=== PATIENT | female | born 1980 | race Caucasian/White ===

== ENCOUNTER 2019-07-14 08:56 | Observation (INO) | payer OTHER, SELFPAY ==
[2019-07-14 09:30] VITALS: BP 103/70; PULSE 99
[2019-07-14 09:35] VITALS: RESP 16; TEMP 36.4; BMI 29.2
--- NOTE | 2019-07-14 09:35 | OBADM ---
This patient, Amy Cedillo, admitted to the OB room 116 at 0856 for observation for left sided pain. Patient/family oriented to hospital policies and general routines including ID bracelet, bed and alarms, visiting hours, pain management, procedures, bathroom and other care routines, personal items, smoking policy, room service/diet, and visiting hours. Patient/Family are encouraged to report perceived risks to care and to ask questions if they do not understand what they are told or what they should do.
[2019-07-14 09:45] VITALS: BP 99/65; PULSE 105
[2019-07-14 10:00] VITALS: BP 106/70; PULSE 108
[2019-07-14 10:01] LABS: Add Urine Microscopic? YES; Appearance Urine Clear (Clear); Bacteria Urine Trace /hpf; Bilirubin Urine Negative (Negative); Blood Urine Negative (Negative); Color Urine Yellow (Yellow); Glucose Urine UA Negative (Negative); Ketones Urine Trace mg/dL (Negative); Leukocyte Esterase Ur Negative LEU/UL (Negative); Mucus Urine Rare /lpf; Nitrate Urine Negative (Negative); Protein Urine Negative (Negative); RBC Urine 0-2 /hpf (0-2); Specific Grav Ur 1.016 (1.001-1.035); Squamous Epithelial Cell Urine Occasional /hpf (Few); Urobilinogen Urine Negative mg/dL (<2.0); WBC Urine 0-3 /hpf
--- NOTE | 2019-07-14 10:01 | PM.OBTRLD ---
OB - Triage/Final Diagnosis Visit Information Date of evaluation: 07/14/19 Reason for evaluation: threatened labor Evaluation Vital signs: Vital Signs - 24 hr 07/14/19 09:30 07/14/19 09:35 07/14/19 09:45 Temperature 97.5 F L Pulse Rate 99 105 H Respiratory Rate 16 Blood Pressure 103/70 99/65 L 07/14/19 10:00 Temperature Pulse Rate 108 H Respiratory Rate Blood Pressure 106/70
[2019-07-14 10:15] VITALS: BP 107/72; PULSE 89
[2019-07-14 11:00] VITALS: BP 87/62; PULSE 89
== END 2019-07-14 11:28 | disposition home or self-care (01) ==
PROVIDERS: Admitting Provider Obstetrics & Gynecology; Visit Provider Obstetrics & Gynecology
DX: O47.1 False labor at or after 37 completed weeks of gestation (principal); Z3A.37 37 weeks gestation of pregnancy
CPT/HCPCS: 81001; G0378; G0379

== ENCOUNTER 2019-07-25 14:01 | Outpatient (CLI) | payer OTHER, SELFPAY ==
[2019-07-25 16:29] LABS: Hematocrit 37.4 % (37.0-47.0); Hemoglobin 12.8 g/dL (12.0-15.0); Mean Corpuscular HGB Conc 34.2 g/dl (32-36); Mean Corpuscular Hemoglobin 32.8 pg (26-34); Mean Corpuscular Volume 95.9 fl (80-100); Mean Platelet Volume 11.7 fl (7.4-10.4); Platelet Count Result 136 k/mm3 (150-375); Red Cell Distribution Width 14.6 % (11.5-14.5); White Blood Count 6.8 K/mm3 (4.5-10.0)
[2019-07-26 09:25] LABS: Rapid Plasma Reagin Non-Reactive (NonReactive)
== END 2019-07-25 14:02 | disposition home or self-care (01) ==
PROVIDERS: Visit Provider Obstetrics & Gynecology
DX: Z34.93 Encounter for supervision of normal pregnancy, unspecified, third trimester (principal); Z3A.00 Weeks of gestation of pregnancy not specified
CPT/HCPCS: 36415; 85027; 86592; 86850; 86900; 86901

== ENCOUNTER 2019-07-26 05:30 | Inpatient (IN) | payer OTHER, SELFPAY ==
[2019-07-26] VITALS (64 sets, daily range): BP systolic 94–131; BP diastolic 59–87; PULSE 50–188; RESP 15–19; TEMP 36.3–37.7; O2SAT 96–100; BMI 30.9
[2019-07-26] MEDS: LACTATED RINGERS 1,000 ML 125 ML IV CONT (06:09)
--- NOTE | 2019-07-26 06:44 | WPDANESEPPF ---
Anes - Initial Pre Proc Eval Procedure: Operation Date: 07/26/19 07:30 Proposed Procedures p Repeat Section, Tubal Ligation With Rings - Mejia Edmond MD Date/Time: 07/26/19 06:44 Surgeon: Mejia Edmond MD Pre Op Diagnosis: SECTION Patient Data Age: 38 Gender: F Height: Weight: Last Vital Signs Pulse 86 07/26/19 06:10 BP 113/78 07/26/19 06:10 Allergies Allergy/AdvReac Type Severity Reaction Status Date / Time Penicillins AdvReac Unknown Vomiting Verified 08/11/16 07:51 Home Medications Medication Instructions Recorded Confirmed Type PNV cmb#95-ferrous fumarate-FA 1 tablet PO DAILY 07/04/19 07/14/19 History [] cholecalciferol (vitamin D3) 125 mcg PO DAILY 07/04/19 07/14/19 History [Vitamin D3] valacyclovir [Valtrex] 500 mg PO DAILY 07/04/19 07/14/19 History Patient hx anesthesia problems: none Family hx anesthesia problems: none PMFSH Family History Family History Father Skin cancer Father Liver cancer Social History Social History Substance use: never Gender identity (if verbalized by the patient): Female Spiritual care concerns: No Anes - Eval Final PreProcedure Day of Procedure 07/26/19 06:44 Patient weight: overweight Heart: regular rate and rhythm Lungs: clear to auscultation Airway: Mallampati scale class II Neurological: alert and oriented Last oral intake: >/= 8 hours ASA classification: II Emergent: no Anesthetic plan: proceed Anesthesia type and monitoring: regional spinal and standard monitoring Informed Consent: The patient's anesthetic plan and its attendant risks and benefits were discussed with the patient/family/POA. Questions were solicited and answers provided to the satisfaction of the patient/family/POA.
[2019-07-26] MEDS: LACTATED RINGERS 1,000 ML 999 ML IV CONT (06:46)
--- NOTE | 2019-07-26 07:25 | LDADM ---
This patient, Amy Cedillo, was admitted to Labor/Delivery/Recovery 120 on 07/26/19 at 05:30. Plans for section, pain management and were discussed with patient. Patient/family oriented to hospital policies and general routines including ID bracelet, bed and alarms, visiting hours, pain management, procedures, bathroom and other care routines, personal items, smoking policy, room service/diet and guest tray routines, security routines, and visiting hours. Patient/Family are encouraged to report perceived risks to care and to ask questions if they do not understand what they are told or what they should do. See OBIX for further documentation.
[2019-07-26] MEDS: ceFAZolin 2 GM/D5W 50 ML 2 GM/50 ML BAG IVPB (07:35)
--- NOTE | 2019-07-26 07:40 | PM.IMHP ---
H&P: HPI History of Present Illness Chief complaint: SECTION Narrative: Amy Cedillo is a 38 year old female Multiple who was admitted for repeat section tubal ligation. She understands this to be a permanent and irreversible procedure risks and benefits reviewed. Review of Systems Review of Systems: All systems reviewed & are unremarkable except as noted in HPI and below PMFSH Family History Family History Father Skin cancer Father Liver cancer Social History Social History Smoking status: Never smoker Substance use: never Gender identity (if verbalized by the patient): Female Spiritual care concerns: No Meds Home Medications and Allergies Home Medications Medication Instructions Recorded Confirmed Type PNV cmb#95-ferrous fumarate-FA 1 tablet PO DAILY 07/04/19 07/14/19 History [] cholecalciferol (vitamin D3) 125 mcg PO DAILY 07/04/19 07/14/19 History [Vitamin D3] valacyclovir [Valtrex] 500 mg PO DAILY 07/04/19 07/14/19 History Allergies Allergy/AdvReac Type Severity Reaction Status Date / Time Penicillins AdvReac Unknown Vomiting Verified 08/11/16 07:51 Vital Signs Vital Signs - 24 hr 07/26/19 06:10 Pulse Rate 86 Blood Pressure 113/78 Exam Const: General: no acute distress Eyes: General: appearance normal, both eyes and all related structures Neck: Neck: supple and no JVD Thyroid: thyroid normal Resp: Effort & Inspection: normal respiratory effort Auscultation: clear to auscultation bilaterally Cardio: Rate: regular rate Rhythm: regular rhythm GI: Inspection: non-distended GI Palp: Yes Soft to palpation, No Tenderness to palpation present (GI) and No Guarding due to palpation present (GI) Auscultation: normal bowel sounds : General: Yes bladder normal to palpation External Female Exam: normal external appearance Speculum Exam - Vagina: normal vaginal discharge and No vaginal bleeding Speculum Exam - Cervix: nontender Bimanual exam- vagina & uterus: bladder normal to palpation and No Cervical tenderness present OB/external & speculum: No vaginal bleeding Skin: General skin exam: no rashes or lesions noted Extrem: General: normal to inspection and no edema Psych: Mental Status: mental status grossly normal Affect: normal affect Assessment and Plan Additional Plan Impression: Term with previous section who desires permanent sterilization Plan: Repeat section and tubal ligation
[2019-07-26] MEDS: KETOROLAC 30 MG/ML VIAL (*BKC) (08:10)
--- NOTE | 2019-07-26 08:18 | PM.PROC ---
Procedure Note - Detailed Date of procedure: 07/26/19 Pre-op diagnosis: SECTION Surgeon: Mejia Edmond MD Postop diagnosis: S previous section desires permanent sterilization term Procedure: Repeat low-transverse section and bilateral tubal ligation via modified Familia method EBL: 480cc Findings: Female infant 8 lb 0 oz Apgars 8 and 9 at 1 and 5 minutes respectively. A small uterine fibroid at the fundus measuring about a cm in size normal-appearing ovaries and tubes. Anesthesia: Spinal Procedure: The patient was prepped and draped in the normal sterile fashion placed in the supine position. Under excellent spinal anesthetic the abdomen was entered in a Pfannenstiel fashion progressive layers to the fascia. Fascia was incised midline carried upward outward fashion bilaterally. The underlying muscles were sharply dissected prior perineum a by Marcela clamps. The peritoneum was entered by sharp dissection superiorly and carried inferiorly to the dome of the bladder. Bladder blade was placed a bladder flap was formed. A bladder flap the bladder blade returned. A low-transverse incision made in the head delivered in the RYAN position. Anterior posterior shoulder delivered spontaneously. Cord clamped x2 and cut and infant passed off the table given Apgars of 8 [id number] 9 [id number]. Cord blood was drawn. Placenta delivered intact manually and uterus delivered in the abdomen and wrapped in a moist towel. The fascia was then closed with continuous running 0 Vicryl from lateral edge to lateral edge followed by 2nd imbricating 0 Vicryl from lateral edge to lateral edge. Hemostasis was assured the left fallopian tube was grasped a good knuckle of tube was free tied with 0 chromic. The portion between the and the distal and proximal legs were free tied with 0 chromic in the portion between cut and passed off the table and marked as portion of left fallopian tube. In like fashion the right fallopian tube was grasped a good knuckle of tube was free tied with 0 chromic the peritoneum pierced and the distal and proximal legs were free tied with 0 chromic. The portion between cut and passed off as portion of right fallopian tube. Hemostasis was assured. The uterine incision inspected 1 last time noted be hemostatic. The uterus returned to the abdomen. Laps removed and accounted for. The fascia was closed with continuous running 0 Vicryl from lateral edge to midline bilaterally. Irrigation subcutaneous layer was undertaken and the skin closed with 4 O Monocryl and glue. Blood loss was estimated [id number]. All sponge, needle, instrument counts were correct. There were no immediate complications
[2019-07-26] MEDS: ONDANSETRON INJ 4 MG/2 ML VIAL IV PUSH (09:16)
[2019-07-26] MEDS: SIMETHICONE 80 MG TAB.CHEW PO ×2 (11:21→18:08)
[2019-07-26] MEDS: KETOROLAC 30 MG/ML VIAL (*BKC) IV PUSH (13:12)
--- NOTE | 2019-07-26 13:20 | PC.NURSE ---
Consult with pt., mother states she wishes to pump and bottle feed. is currently in Level II status. Breast pump provided due to her wishes. Instructions given on breast pump care and usage, pumping schedule, nipple care, and collection and storage of breast milk. Encouraged [id number] when infant is able, breast massage and manual expression to stimulate supply. Pumping log provided and reviewed. Assessed patient for correct flange size, placement and draw. Patient verbalizes and demonstrates understanding of instructions.
[2019-07-26] MEDS: DOCUSATE SODIUM 100 MG CAPSULE PO (18:10)
[2019-07-27 04:47] VITALS: BP 118/67; PULSE 71; RESP 18; TEMP 36.9
[2019-07-27] MEDS: IBUPROFEN 600 MG TABLET PO ×3 (05:06→19:18)
[2019-07-27 06:11] LABS: Basophils Absolute Auto 0.1 K/mm3 (0.0-0.1); Basophils Percent Auto 0.7 % (0.2-1.2); Eosinophils Absolute Auto 0.1 K/mm3 (0-0.3); Eosinophils Percent Auto 0.8 % (0-4.4); Hematocrit 35.2 % (37.0-47.0); Hemoglobin 11.9 g/dL (12.0-15.0); Immature Granulocyte Absolute 0.06 K/mm3 (0.00-0.031); Immature Granulocyte Percent A 0.6 % (0-0.5); Lymphocytes Absolute Auto 1.28 K/mm3 (0.9-3.2); Lymphocytes Percent Auto 12.5 % (18.3-44.2); Mean Corpuscular HGB Conc 33.8 g/dl (32-36); Mean Corpuscular Hemoglobin 32.9 pg (26-34); Mean Corpuscular Volume 97.2 fl (80-100); Mean Platelet Volume 11.5 fl (7.4-10.4); Monocytes Absolute Auto 0.7 K/mm3 (0.1-0.6); Monocytes Percent Auto 6.4 % (2.6-8.5); Neutrophils Absolute Auto 8.1 K/mm3 (1.3-6.7); Platelet Count Result 103 k/mm3 (150-375); Red Blood Count 3.62 M/mm3 (4.2-5.4); Red Cell Distribution Width 14.6 % (11.5-14.5); White Blood Count 10.3 K/mm3 (4.5-10.0)
--- NOTE | 2019-07-27 06:42 | PM.OBPNVD ---
OB - PN: Subj Subjective Date/time seen: 07/27/19 06:42 Patient comments: no complaints and pain well controlled baby status: doing well and nursing well OB - PN: Obj Data Labs CBC & Chem 7: 07/27/19 05:06 Labs: Laboratory Results - last 24 hr 07/27/19 05:06 WBC 10.3 H RBC 3.62 L Hgb 11.9 L Hct 35.2 L MCV 97.2 MCH 32.9 MCHC 33.8 RDW 14.6 H Plt Count 103 L MPV 11.5 H Immature Gran % (Auto) 0.6 H Neut % (Auto) 79.0 H Lymph % (Auto) 12.5 L [place] % (Auto) 6.4 Eos % (Auto) 0.8 Baso % (Auto) 0.7 Lymph # (Auto) 1.28 [place] # (Auto) 0.7 H Eos # (Auto) 0.1 Baso # (Auto) 0.1 Abs Immat Gran (auto) 0.06 H Absolute Neuts (auto) 8.1 H Absolute Nucleated RBC 0.0 Nucleated RBC % 0.0 OB - PN A/P Plan day: 1 Plan: routine care Time Spent With Patient Time: Total time spent is greater than 50% in coordination of care (as documented) at patient's floor/unit and/or counseling patient: Time with patient: less than 15 minutes Review of Systems Review of Systems: All systems reviewed & are unremarkable except as noted in HPI and below Exam Const: General: no acute distress Eyes: General: appearance normal, both eyes and all related structures Neck: Neck: supple and no JVD Thyroid: thyroid normal Resp: Effort & Inspection: normal respiratory effort Auscultation: clear to auscultation bilaterally Cardio: Rate: regular rate Rhythm: regular rhythm GI: Inspection: normal to inspection and incision (cdi) Percussion: Yes normal to percussion Auscultation: normal bowel sounds : General: Yes bladder normal to palpation External Female Exam: normal external appearance Speculum Exam - Vagina: normal vaginal discharge and No vaginal bleeding Speculum Exam - Cervix: nontender Bimanual exam- vagina & uterus: bladder normal to palpation and No Cervical tenderness present OB/external & speculum: No vaginal bleeding Skin: General skin exam: no rashes or lesions noted Extrem: General: normal to inspection and no edema Psych: Mental Status: mental status grossly normal Affect: normal affect
[2019-07-27 07:45] VITALS: BP 104/55; PULSE 62; RESP 16; TEMP 37.6; O2SAT 95
[2019-07-27] MEDS: MULTIVIT/MIN/PREN/FOL AC/IRON TABLET 1 TAB PO (08:06)
[2019-07-27] MEDS: DOCUSATE SODIUM 100 MG CAPSULE PO ×2 (08:07→19:17)
--- NOTE | 2019-07-27 10:15 | PC.NURSE ---
Mother states she continues to pump without difficulties or discomfort. Mother states she thought she may have more supply by today. Reviewed transition of milk and may take a few days.
--- NOTE | 2019-07-27 18:02 | WPDANLDPN2 ---
Anes-Prog Note L&D Date/Time: 07/27/19 18:02 Comfortable throughout: section Neuraxial method: spinal Epidural/Spinal procedure site: clean & non-tender Neuro status: Neuro function grossly intact. Cardiovascular status: normal Respiratory status: normal Airway patency: baseline Mental status: baseline Post-Op hydration status: normal Vital Signs: Last Vital Signs Temp 37.6 C H 07/27/19 07:45 Pulse 62 07/27/19 07:45 Resp 16 07/27/19 07:45 BP 104/55 L 07/27/19 07:45 Pulse Ox 95 07/27/19 07:45 I/O: Intake & Output 07/27/19 07/27/19 07/27/19 07:59 15:59 23:59 Intake Total 500 Output Total 2050 300 Balance -1550 -300 Post-procedural complaints: none Patient feedback: Patient satisfied with anesthetic care.
--- NOTE | 2019-07-27 18:03 | WPDANLDNPN2 ---
Anes-Prog Note L&D-Neuraxial Date/Time: 07/27/19 18:03 Neuraxial medications: intrathecal PF morphine Opiod-related complaints: none Patient feedback: Patient satisfied with post-operative pain management.
[2019-07-27 19:25] VITALS: BP 122/76; PULSE 80; RESP 13; TEMP 37; O2SAT 98
[2019-07-28] MEDS: IBUPROFEN 600 MG TABLET PO ×4 (02:10→20:39)
[2019-07-28] MEDS: SIMETHICONE 80 MG TAB.CHEW PO (02:11)
--- NOTE | 2019-07-28 07:04 | P.PNOB_ITS ---
OB - PN: Subj Subjective Date/time seen: 07/28/19 07:04 Patient comments: no complaints and pain well controlled baby status: doing well and nursing well OB - PN: Obj Data Labs CBC & Chem 7: 07/27/19 05:06 OB - PN A/P Plan day: 2 Plan: routine care Time Spent With Patient Time: Total time spent is greater than 50% in coordination of care (as fang pedroza) at patient's floor/unit and/or counseling patient: Time with patient: less than 15 minutes Review of Systems Review of Systems: All systems reviewed & are unremarkable except as noted in HPI and below Exam Const: General: no acute distress Eyes: General: appearance normal, both eyes and all related structures Neck: Neck: supple and no JVD Thyroid: thyroid normal Resp: Effort & Inspection: normal respiratory effort Auscultation: clear to auscultation bilaterally Cardio: Rate: regular rate Rhythm: regular rhythm GI: Inspection: normal to inspection and incision (cdi) Percussion: Yes normal to percussion Auscultation: normoactive bowel sounds : General: Yes bladder normal to palpation External Female Exam: normal external appearance Speculum Exam - Vagina: normal vaginal discharge and No vaginal bleeding Speculum Exam - Cervix: nontender Bimanual exam- vagina & uterus: bladder normal to palpation and No Cervical tenderness present OB/external & speculum: No vaginal bleeding Skin: General skin exam: no rashes or lesions noted Extrem: General: normal to inspection and no edema Psych: Mental Status: mental status grossly normal Affect: normal affect
[2019-07-28] MEDS: DOCUSATE SODIUM 100 MG CAPSULE PO ×2 (07:53→17:45)
[2019-07-28] MEDS: MULTIVIT/MIN/PREN/FOL AC/IRON TABLET 1 TAB PO (07:53)
[2019-07-28 08:35] VITALS: BP 121/73; PULSE 63; RESP 18; TEMP 36.3
[2019-07-28 20:15] VITALS: BP 116/69; PULSE 58; RESP 16; TEMP 36.4; O2SAT 99
[2019-07-29] MEDS: IBUPROFEN 600 MG TABLET PO ×2 (04:24→11:09)
[2019-07-29] MEDS: MULTIVIT/MIN/PREN/FOL AC/IRON TABLET 1 TAB PO (07:27)
[2019-07-29] MEDS: DOCUSATE SODIUM 100 MG CAPSULE PO (07:27)
[2019-07-29 07:35] VITALS: BP 135/74; PULSE 87; RESP 18; O2SAT 99
--- NOTE | 2019-07-29 08:30 | PC.NURSE ---
Mother continues to pump without difficulties or discomfort. Mother's milk is transitioning in today. Reviewed offering EBM then formula until she has enough breastmilk to switch to entire feeding of EBM. Reviewed instructions given on breast pump care and usage, pumping schedule, nipple care, and collection and storage of breast milk. Encouraged [id number], breast massage and manual expression to stimulate supply. Reviewed correct flange size, placement and draw. Patient verbalizes and demonstrates understanding of instructions. Mother is feeding as required and waking infant to feed if needed. Infant is currently meeting outcomes for weight, output, jaundice and feeding frequencies. Mother states she feels confident to continue her feeding plan at home. Reviewed transition to breast milk, signs of adequate intake, and engorgement/relief. Instructed to call ICP if intake/output less than required. Reviewed regular medications mother is taking. Information provided per Sammie. Reviewed community resources on the [facility] website and in the Mom/Baby guide. Information on outpatient services provided. Mother has no further questions at this time.
--- NOTE | 2019-07-29 10:49 | PM.DS ---
DS: Diagnosis Admitting Diagnosis Admitting Diagnosis: term /desires sterilization DS: Summary Time Spent with Patient Time attestation: Total time spent providing and/or coordinating discharge services: Exam Const: General: no acute distress Eyes: General: appearance normal, both eyes and all related structures Neck: Neck: supple and no JVD Thyroid: thyroid normal Resp: Effort & Inspection: normal respiratory effort Auscultation: clear to auscultation bilaterally Cardio: Rate: regular rate Rhythm: regular rhythm GI: Inspection: non-distended GI Palp: Yes Soft to palpation, No Tenderness to palpation present (GI) and No Guarding due to palpation present (GI) Auscultation: normal bowel sounds : General: Yes bladder normal to palpation External Female Exam: normal external appearance Speculum Exam - Vagina: normal vaginal discharge and No vaginal bleeding Speculum Exam - Cervix: nontender Bimanual exam- vagina & uterus: bladder normal to palpation and No Cervical tenderness present OB/external & speculum: No vaginal bleeding Skin: General skin exam: no rashes or lesions noted Extrem: General: normal to inspection and no edema Psych: Mental Status: mental status grossly normal Affect: normal affect DS: Data Data Completed and Pending Completed studies during hospitalization: Pending at discharge 07/26/19 08:13 Surgical [PTH] Routine Discharge Plan Discharge Attending physician on discharge: Mejia Edmond Discharging Clinician: Mejia Edmond Patient Disposition: Home, Self-Care Activity: may shower, no straining, may drive after 2 weeks and pelvic rest Diet: heart healthy Wound Care Instructions: follow printed instructions Discharge Instructions: Education: Mom and Baby Guide Given to: Mother Follow-Up: Call your delivering provider's office for an appointment to be seen in: 1 Week Mom and baby should come to the [facility] for the follow-up appointment. Appointment Date/Time: July 30, 2019 at 8:00 am What to expect at your follow-up visit: Physical Assessment Call [phone] if you are unable to keep your appointment time. BREAST CARE: 1. Wear a snug supportive bra. 2. For engorgement discomfort: Breast Feeding: A. Apply warm moist washcloths B. Express milk as needed to relieve engorgement C. Wear loose clothing Bottle Feeding: A. May apply ice packs 3. For sore nipples: A. Identify correct latch-on B. Apply warm moist washcloths before and after nursing C. Air dry nipples after nursing D. May apply Lansinoh cream to nipples ABDOMINAL INCISION: (if applicable) 1. Allow incision to air dry 2. Do NOT use lotions for powders on your incision 3. When showering, allow soap and water to run over the incision, but do not wash incision EPISIOTOMY/PERINEAL CARE: 1. Until bleeding stops, use your josé manuel bottle after urinating 2. Change your pad frequently throughout the day 3. You may take sitz baths several times a day (fill your bathtub with warm water and soak for 20 minutes.) Do NOT bathe in the water 4. No tub baths until seen by your physician - You may shower ACTIVITY: 1. Rest as much as possible. 2. Do not exercise or lift anything heavier than your baby (such as laundry or other children.) 3. Avoid stairs or driving as much as possible. 4. Do not put anything into the vagina. No douching, tampons, or sexual activity until seen by physician. NOTIFY PHYSICIAN IF YOU HAVE ANY QUESTIONS OR IF ANY OF THE FOLLOWING SYMPTOMS OCCUR: 1. If your incision becomes red, swollen, or more painful than what you have experienced in the hospital. 2. If your vaginal bleeding becomes foul smelling. 3. If your vaginal bleeding becomes more heavy than a period or if your bleeding changes from pink to bright red. However, you may pass an occasional walnut-sized clot once or twi
--- NOTE | 2019-07-29 10:50 | PM.OBPNVD ---
OB - PN: Subj Subjective Date/time seen: 07/29/19 10:50 Patient comments: no complaints and pain well controlled baby status: doing well OB - PN: Obj Data Labs CBC & Chem 7: 07/27/19 05:06 OB - PN A/P Plan day: 3 Plan: routine care, discharge home and follow up 6 weeks (4 weeks) Time Spent With Patient Time: Total time spent is greater than 50% in coordination of care (as documented) at patient's floor/unit and/or counseling patient: Time with patient: less than 15 minutes Review of Systems Review of Systems: All systems reviewed & are unremarkable except as noted in HPI and below Exam Const: General: no acute distress Eyes: General: appearance normal, both eyes and all related structures Neck: Neck: supple and no JVD Thyroid: thyroid normal Resp: Effort & Inspection: normal respiratory effort Auscultation: clear to auscultation bilaterally Cardio: Rate: regular rate Rhythm: regular rhythm GI: Inspection: non-distended GI Palp: Yes Soft to palpation, No Tenderness to palpation present (GI) and No Guarding due to palpation present (GI) Auscultation: normal bowel sounds : General: Yes bladder normal to palpation External Female Exam: normal external appearance Speculum Exam - Vagina: normal vaginal discharge and No vaginal bleeding Speculum Exam - Cervix: nontender Bimanual exam- vagina & uterus: bladder normal to palpation and No Cervical tenderness present OB/external & speculum: No vaginal bleeding Skin: General skin exam: no rashes or lesions noted Extrem: General: normal to inspection and no edema Psych: Mental Status: mental status grossly normal Affect: normal affect
--- NOTE | 2019-07-29 11:00 | PC.NURSE ---
Patient viewed the discharge video Mother & Baby Care, The First Two Weeks . Patient was given the opportunity and encouraged to ask questions. Patient verbalized understanding of information shared and has been given the mother/baby guide for home reference.
[2019-07-30 07:50] VITALS: BP 126/77; PULSE 53; RESP 20; TEMP 36.6; O2SAT 98
== END 2019-07-29 12:48 | disposition home or self-care (01) | DRG 785 ==
LOC: ANHLDR 05:38 → ANHOB2 10:58
PROVIDERS: Admitting Provider Obstetrics & Gynecology; Visit Provider Obstetrics & Gynecology
PROC: 10D00Z1 Extraction of Products of Conception, Low, Open Approach (ICD-10-PCS; CPT 59514; principal; 2019-07-26 07:30)
DX: O34.211 Maternal care for low transverse scar from previous cesarean delivery (principal); Z37.0 Single live birth; Z3A.39 39 weeks gestation of pregnancy; O34.13 Maternal care for benign tumor of corpus uteri, third trimester; D25.9 Leiomyoma of uterus, unspecified; Z30.2 Encounter for sterilization
CPT/HCPCS: 36415; 85025; 85027; 86592; 86850; 86900; 86901; 88302; A9270; J0131; J0690; J1885; J2274; J2405; J2590; J3010; J7120

== ENCOUNTER → 2020-08-06 00:12 | Outpatient (CLI) | payer OTHER, SELFPAY ==
[2020-08-06 19:32] LABS: SARS-CoV-2 RNA PCR Negative
== END ==
PROVIDERS: Visit Provider Internal Medicine Gastroenterology
DX: Z01.812 Encounter for preprocedural laboratory examination (principal); Z20.822 Contact with and (suspected) exposure to COVID-19
CPT/HCPCS: C9803; U0003; U0005

== ENCOUNTER 2020-08-09 01:25 | Day surgery (SDC) | payer OTHER, SELFPAY ==
[2020-07-24 13:39] VITALS: BMI 24.9
--- NOTE | 2020-08-09 10:13 | WPDANESEPP ---
Anes - Eval Pre Procedure Procedure: Operation Date: 08/09/20 13:00 Proposed Procedures p Colonoscopy - Dain Baldwin MD Date/Time: 08/09/20 10:13 Pre Op Diagnosis: abd pain, melena Patient Data Age: 39 Gender: F Height: 5 ft 4 in Weight: 65.9 kg Allergies Allergy/AdvReac Type Severity Reaction Status Date / Time Penicillins AdvReac Unknown Vomiting Verified 07/24/20 13:38 Home Medications Medication Instructions Recorded Confirmed Type cholecalciferol (vitamin D3) 125 mcg PO DAILY 07/04/19 07/24/20 History [Vitamin D3] valacyclovir [Valtrex] 500 mg PO DAILY 07/04/19 07/24/20 History sodium,potassium,mag sulfates 17.5 See Rx Instructions PO .COMPLEX 07/19/20 Rx gram-3.13 gram-1.6 gram oral soln #354 ml Patient hx anesthesia problems: none Family hx anesthesia problems: none PMFSH Past Medical History Medical History Eczema Endometriosis Melena Post depression Surgical History Surgical History Previous section Family History Family History Father Skin cancer Father Liver cancer Social History Social History Smoking status: Never smoker Substance use: never Substance use type: does not use Living arrangements: with family Gender identity (if verbalized by the patient): Female Spiritual care concerns: No Exam Day of Procedure 08/09/20 10:13 Patient weight: normal Airway: Mallampati scale class II Neurological: alert and oriented
[2020-08-09 11:54] VITALS: BP 107/72; PULSE 88; RESP 20; O2SAT 100
[2020-08-09] MEDS: LACTATED RINGERS 1,000 ML 150 ML IV CONT (12:06)
--- NOTE | 2020-08-09 12:20 | WPDANESEPPF ---
Anes - Initial Pre Proc Eval Procedure: Operation Date: 08/09/20 13:00 Proposed Procedures p Colonoscopy - Dain aBldwin MD Date/Time: 08/09/20 12:20 Surgeon: Dain Baldwni MD Pre Op Diagnosis: abd pain, melena Patient Data Age: 39 Gender: F Height: 1.63 m Weight: 65.9 kg Last Vital Signs Pulse 88 08/09/20 11:54 Resp 20 08/09/20 11:54 BP 107/72 08/09/20 11:54 Pulse Ox 100 08/09/20 11:54 Allergies Allergy/AdvReac Type Severity Reaction Status Date / Time Penicillins AdvReac Unknown Vomiting Verified 08/09/20 11:51 Home Medications Medication Instructions Recorded Confirmed Type cholecalciferol (vitamin D3) 125 mcg PO DAILY 07/04/19 07/24/20 History [Vitamin D3] valacyclovir [Valtrex] 500 mg PO DAILY 07/04/19 07/24/20 History sodium,potassium,mag sulfates 17.5 See Rx Instructions PO .COMPLEX 07/19/20 Rx gram-3.13 gram-1.6 gram oral soln #354 ml Patient hx anesthesia problems: none Family hx anesthesia problems: none PMFSH Past Medical History Medical History Eczema Endometriosis Melena Post depression Surgical History Surgical History Previous section Family History Family History Father Skin cancer Father Liver cancer Social History Social History Smoking status: Never smoker Substance use: never Substance use type: does not use Living arrangements: with family Gender identity (if verbalized by the patient): Female Spiritual care concerns: No Anes - Eval Final PreProcedure Day of Procedure 08/09/20 12:20 Patient weight: normal Heart: regular rate and rhythm Lungs: clear to auscultation and normal air movement Airway: Mallampati scale class II Neurological: alert and oriented Last oral intake: >/= 8 hours ASA classification: II Emergent: no Anesthetic plan: proceed Anesthesia type and monitoring: general GIVS and standard monitoring Informed Consent: The patient's anesthetic plan and its attendant risks and benefits were discussed with the patient/family/POA. Questions were solicited and answers provided to the satisfaction of the patient/family/POA.
--- NOTE | 2020-08-09 14:36 | PM.HPGS ---
History of Present Illness History of Present Illness Consent: Risks, benefits, and alternatives have been discussed and questions answered. Patient agrees to proceed with procedure. Chief complaint: abd pain, melena Narrative: Amy Cedillo is a 39 year old female with lower abdominal pain, never had colonoscopy Review of Systems Constitutional: Constitutional: Denies headache(s) and Denies weakness Eyes: Eyes: Denies blurry vision ENT: Reports Normal hearing present, Denies headache(s) and Denies neck pain Cardiovascular: Cardiovascular: Denies chest pain and Denies dyspnea Respiratory: Respiratory: Denies dyspnea Gastrointestinal: Gastrointestinal: Reports no additional gastrointestinal complaints Genitourinary: Genitourinary: Denies dysuria Musculoskeletal: Musculoskeletal: Denies neck pain Integumentary/Breasts: Skin/Breast: Denies dry skin Neurologic: Reports Normal hearing present, Denies headache(s) and Denies weakness Psychiatric: Psychiatric: Denies anxiety Endocrine: Endocrine: Denies change in body appearance Hematologic/Lymphatic: Hematologic/Lymphatic: Denies easy bleeding Allergic/Immunologic: Allergic/Immunologic: Denies urticaria PMFSH Past Medical History Medical History Eczema Endometriosis Melena Post depression Surgical History Surgical History Previous section Family History Family History Father Skin cancer Father Liver cancer Social History Social History Smoking status: Never smoker Substance use: never Substance use type: does not use Living arrangements: with family Gender identity (if verbalized by the patient): Female Spiritual care concerns: No Meds Home Medications and Allergies Home Medications Medication Instructions Recorded Confirmed Type cholecalciferol (vitamin D3) 125 mcg PO DAILY 07/04/19 07/24/20 History [Vitamin D3] valacyclovir [Valtrex] 500 mg PO DAILY 07/04/19 07/24/20 History sodium,potassium,mag sulfates 17.5 See Rx Instructions PO .COMPLEX 07/19/20 Rx gram-3.13 gram-1.6 gram oral soln #354 ml Allergies Allergy/AdvReac Type Severity Reaction Status Date / Time Penicillins AdvReac Unknown Vomiting Verified 08/09/20 11:51 Vital Signs Vital Signs - 24 hr 08/09/20 11:54 Pulse Rate 88 Respiratory Rate 20 Blood Pressure 107/72 Pulse Oximetry 100 Exam Const: General: comfortable and no acute distress HENMT: General nose exam: Normal nares present Eyes: General: appearance normal, both eyes and all related structures Neck: Neck: no JVD Resp: Auscultation: clear to auscultation bilaterally Cardio: Rate: regular rate Rhythm: regular rhythm GI: Inspection: non-distended GI Palp: Yes Soft to palpation Skin: General skin exam: normal color Neuro: General: gait normal Speech: normal speech Extrem: General: normal to inspection Psych: Mental Status: mental status grossly normal Assessment and Plan Assessment and plan (1) Lower abdominal pain: Code(s): R10.30 - Lower abdominal pain, unspecified Status: Acute Assessment and Plan: colonoscopy (2) Endometriosis: Code(s): N80.9 - Endometriosis, unspecified Status: Inactive
[2020-08-09 15:15] VITALS: BP 99/63; PULSE 82; RESP 18; O2SAT 100
[2020-08-09 15:25] VITALS: BP 101/66; PULSE 79; RESP 15; O2SAT 100
[2020-08-09 15:32] VITALS: BP 117/70; PULSE 74; RESP 18; O2SAT 100
== END 2020-08-09 15:45 | disposition home or self-care (01) ==
PROVIDERS: PCP Registered Nurse; Visit Provider Internal Medicine Gastroenterology
PROC: 0DJD8ZZ Inspection of Lower Intestinal Tract, Via Natural or Artificial Opening Endoscopic (ICD-10-PCS; CPT 45378; principal; 2020-08-09 13:00)
DX: R10.30 Lower abdominal pain, unspecified (principal); K57.30 Diverticulosis of large intestine without perforation or abscess without bleeding; K64.8 Other hemorrhoids; K92.1 Melena
CPT/HCPCS: 45378; C9803; J2704; J7120; U0003; U0005

== ENCOUNTER 2021-09-20 09:27 | Outpatient (CLI) | payer OTHER, SELFPAY ==
--- NOTE | 2021-09-24 14:36 | WPDHOLTEREM ---
Holter/Event Monitor Holter/Event Monitor Date of procedure: 09/20/21 Holter/Event Procedure: 48 Hr Holter Monitor Diagnosis: Heart palpitations Indications: Heart palpitations Image/Tracing Quality: Good Finding: Test date 09/20/2021 Analysis and reading date 09/24/2021 A total of 47 hours and 59 minutes recorded and analyzed. Underlying normal sinus rhythm with heart rate variability between 50 and 145 beats per minute with an average heart rate of 82 beats per min. Low frequency of ventricular ectopy totaling 6 beats. This consisted as 1 couplet 4 isolated PVCs. Low frequency supraventricular ectopy totaling 3 PACs. No complex arrhythmia, heart block, pauses. No sustained or nonsustained runs of ventricular or supraventricular ectopy. Longest RR interval was 1.4 seconds Symptoms of dizziness correlated to sinus tachycardia with heart rate of 104 beats per minute. Sharp pain correlated sinus tachycardia heart rate 106. Heaviness in chest: Sinus rhythm heart rate 97. Two more episodes of sharp pain correlated to sinus rhythm heart rate in the 60s. Conclusion: 1. Unremarkable 48 hour Holter monitor revealing underlying normal sinus rhythm with average heart rate of 82 beats per minute. 2. No complex arrhythmia, heart block or pauses 3. Low frequency ventricular and supraventricular ectopy as detailed above 4. Several patient triggered events correlating to sinus rhythm or sinus tachycardia but without arrhythmia
== END 2021-09-20 09:28 | disposition home or self-care (01) ==
PROVIDERS: PCP Registered Nurse; Visit Provider Registered Nurse
DX: R00.2 Palpitations (principal)
CPT/HCPCS: 93225; 93226

== ENCOUNTER → 2021-10-11 10:35 | Outpatient (CLI) | payer OTHER, SELFPAY ==
--- NOTE | ~2021-10-11 | MM_ITS ---
EXAMINATION: MM screening paco BI w gena HISTORY: Screening TECHNIQUE: Craniocaudal and mediolateral oblique 3-D tomosynthesis images were obtained and synthetic 2-D images were generated. CAD analysis was submitted and interpreted. COMPARISON: No prior mammogram is available for comparison at this institution. BREAST PARENCHYMAL COMPOSITION: The breasts are heterogenously dense, which may obscure small masses FINDINGS: There is no mammographic evidence for malignancy in the right breast. There are focal asymm etries posterior to the nipple on CC view, not well visualized on MLO view. IMPRESSION: 1. Left breast asymmetries. 2. Additional mammographic views and possible breast ultrasound are recommended. BI-RADS Category 0: Incomplete: Needs additional imaging evaluation. Reviewed, dictated and finalized at [facility]. IMPRESSION: 1. Left breast asymmetries. 2. Additional mammographic views and possible breast ultrasound are recommended . BI-RADS Category 0: Incomplete: Needs additional imaging evaluation.
== END ==
PROVIDERS: PCP Registered Nurse; Visit Provider Obstetrics & Gynecology
DX: Z12.31 Encounter for screening mammogram for malignant neoplasm of breast (principal); R92.8 Other abnormal and inconclusive findings on diagnostic imaging of breast
CPT/HCPCS: 77063; 77067

== ENCOUNTER → 2021-11-01 14:26 | Outpatient (CLI) | payer OTHER, SELFPAY ==
--- NOTE | ~2021-11-01 | MMUS_ITS ---
EXAMINATION: MM diagnostic paco LT w gena, US breast LT limited HISTORY: Focal asymmetry of the left breast on baseline screening mammogram TECHNIQUE: Additional 3-D tomosynthesis images of the left breast were performed and synthetic 2-D im ages were generated. CAD analysis was submitted and interpreted. High resolution limited left breast ultrasound was performed. COMPARISON: 10/11/2021 FINDINGS: MAMMOGRAPHIC FINDINGS: There is no suspicious mass, calcification, or architectural distortion to suggest malignancy. No de finite focal asymmetry persists with spot compression of the breast. ULTRASOUND: There is a 4 mm x 3 mm oval, circumscribed, parallel, hypoechoic mass with no posterior features or i nternal vascularity at the 8:00 location 2 cm from the nipple there are masses at the 9:00 location 4 cm from the nipple, the 10:00 location 2 cm from the nipple, and the 10:00 location 1 cm from the ni pple with similar sonographic features. IMPRESSION: 1. Probably benign sonographically detected left breast masses. 2. Recommend 6 month follow-up left breast ultrasound. BI-RADS category 3, probably benign findings. Reviewed, dictated and finalized at [facility]. IMPRESSION: 1. Probably benign sonographically detected left breast masses. 2. Recommend 6 month follow-up left breast ultrasound. BI-RADS category 3, probably benign findings.
== END ==
PROVIDERS: PCP Registered Nurse; Visit Provider Obstetrics & Gynecology
DX: R92.8 Other abnormal and inconclusive findings on diagnostic imaging of breast (principal); N63.25 Unspecified lump in the left breast, overlapping quadrants
CPT/HCPCS: 76642; 77061; 77065; G0279

== ENCOUNTER 2022-04-03 10:31 | Outpatient (CLI) | payer OTHER, SELFPAY ==
--- NOTE | 2022-04-03 11:16 | EST_ITS ---
Patient Info Name: Amy Cedillo Age: 41 years : 1980 Gender: Female Ht: 64 in Wt: 140 lbs BSA: 1.70 m2 Heart Rhythm: Sinus Rhythm Exam Date: 04/03/2022 11:25 AM Exam Location: [facility] Stress Patient Status: Outpatient Admit Date: 04/03/2022 Staff Ordering Physician: Dipesh Bui MD Attending Provider: Dipesh Bui MD Exercise Technologist: Radha Rueda, ZECHARIAH Exercise Physician: Jay Barrios DO Exam Type: CA stress test treadmill Study Info Indications R42 - Dizziness and giddiness A treadmill exercise stress test was performed. Summary 1. 1. Negative Virgilio exercise stress test for ischemic ST changes by ECG criteria. 2. 2. Good functional capacity, achieving 10 METs of workload. 3. 3. Appropriate HR response to exercise. 4. 4. Appropriate HR recovery at 1 minute post exercise. 5. 5. No imaging with stress testing. 6. 6. Patient informed of the above results. Protocol: Virgilio Stress ECG Details Stage: REST Duration (min): 0 min : 50 sec Speed (mph): 0.0 Grade (%): 0 HR (bpm): 72 SBP (mmHg): 118 DBP (mmHg): 79 METS: --- Stage: REST Duration (min): 10 min : 45 sec Speed (mph): 0.0 Grade (%): 0 HR (bpm): 89 SBP (mmHg): 118 DBP (mmHg): 79 METS: --- Stage: STAGE 1 Duration (min): 1 min : 0 sec Speed (mph): 1.7 Grade (%): 10 HR (bpm): 103 SBP (mmHg): 118 DBP (mmHg): 79 METS: --- Stage: STAGE 1 Duration (min): 2 min : 0 sec Speed (mph): 1.7 Grade (%): 10 HR (bpm): 115 SBP (mmHg): 118 DBP (mmHg): 79 METS: --- Stage: STAGE 1 Duration (min): 3 min : 0 sec Speed (mph): 1.7 Grade (%): 10 HR (bpm): 115 SBP (mmHg): 130 DBP (mmHg): 72 METS: --- Stage: STAGE 2 Duration (min): 1 min : 0 sec Speed (mph): 2.5 Grade (%): 12 HR (bpm): 129 SBP (mmHg): 130 DBP (mmHg): 72 METS: --- Stage: STAGE 2 Duration (min): 2 min : 0 sec Speed (mph): 2.5 Grade (%): 12 HR (bpm): 142 SBP (mmHg): 127 DBP (mmHg): 70 METS: --- Stage: STAGE 2 Duration (min): 3 min : 0 sec Speed (mph): 2.5 Grade (%): 12 HR (bpm): 141 SBP (mmHg): 127 DBP (mmHg): 70 METS: --- Stage: STAGE 3 Duration (min): 1 min : 0 sec Speed (mph): 3.4 Grade (%): 14 HR (bpm): 157 SBP (mmHg): 133 DBP (mmHg): 57 METS: --- Stage: STAGE 3 Duration (min): 2 min : 0 sec Speed (mph): 3.4 Grade (%): 14 HR (bpm): 160 SBP (mmHg): 133 DBP (mmHg): 57 METS: --- Stage: STAGE 3 Duration (min): 2 min : 59 sec Speed (mph): 4.2 Grade (%): 16 HR (bpm): 160 SBP (mmHg): 136 DBP (mmHg): 60 METS: --- Stage: RECOVERY Duration (min): 1 min : 0 sec Speed (mph): 0.0 Grade (%): 0 HR (bpm): 131 SBP (mmHg): 136 DBP (mmHg): 60 METS: --- Stage: RECOVERY Duration (min):
== END 2022-04-03 10:32 | disposition home or self-care (01) ==
LOC: ANHCARD 10:32
PROVIDERS: PCP Emergency Medicine; Visit Provider Emergency Medicine
DX: R42 Dizziness and giddiness (principal); K76.9 Liver disease, unspecified
CPT/HCPCS: 93017

== ENCOUNTER → 2022-05-06 14:06 | Outpatient (CLI) | payer OTHER, SELFPAY ==
--- NOTE | ~2022-05-06 | US_ITS ---
US breast LT limited DATE: 05/06/2022 14:41 INDICATION: Six-month follow-up TECHNIQUE: High-resolution ultrasound imaging targeted to 8:00, 9:00 and 10:00 areas of interest COMPARISON: 11/01/2021 diagnostic left mammogram and limited left breast ultrasound 10/11/2021 bilateral screening mammogram FINDINGS: 8:00 2 cm from nipple: Circumscribed 3.6 x 4 x 4.7 mm septated cyst 9:00 4 cm from nipple: 2.2 x 3.1 x 2.6 mm circumscribed hypoechoic lesion without internal vascularit y or posterior shadowing 9:00 2 cm from nipple: Parallel circumscribed 3.6 x 6.6 x 5.3 mm mixed hypoechoic and fatty lesion wi thout internal vascularity or posterior shadowing, benign in appearance 10:00 2 cm from nipple: 3.5 x 4.4x 4.6 mm simple cyst 10:00 1 cm from nipple: 6.1 x 2.2 x 6 mm parallel circumscribed mixed hypoechoic fatty lesion, withou t internal vascularity or posterior shadowing benign in appearance IMPRESSION: BI-RADS Category 2: Benign findings Recommendation: Routine annual mammographic screening Reviewed, dictated and finalized at [facility]. Reviewed, dictated and finalized at [facility]. NCING ANALYST
== END ==
PROVIDERS: PCP Obstetrics & Gynecology; Visit Provider Obstetrics & Gynecology
DX: R92.8 Other abnormal and inconclusive findings on diagnostic imaging of breast (principal)
CPT/HCPCS: 76642

== ENCOUNTER → 2022-10-09 09:36 | Outpatient (CLI) | payer OTHER, SELFPAY ==
--- NOTE | ~2022-10-09 | US_ITS ---
Abdominal Sonogram: Real-time sonographic imaging of the abdomen was performed. Clinical History: Liver disease Findings: The liver appears overall normal echotexture, without evidence of intrahepatic biliary dil atation. There is a 2.2 subcentimeter hyperechoic mass at the posterior right hepatic lobe. Main port al vein demonstrates normal direction of flow. The spleen is normal in size without evidence of focal lesion. The gallbladder is well distended, and appears normal with no evidence of gallstone or wall thickening. The common bile duct measures 5 mm. The visualized pancreas, aorta, and IVC are unremar kable. The right kidney measures 13.0 cm in length and the left kidney measures 11.4 cm. There is n o hydronephrosis or renal calculus. Impression: 2.2 cm hyperechoic right hepatic lobe mass, most likely hemangioma. Follow-up pre and postcontrast MR can be considered to confirm. Reviewed, dictated and finalized at [facility]. Impression: 2.2 cm hyperechoic right hepatic lobe mass, most likely hemangioma. Follow-up p re and postcontrast MR can be considered to confirm.
== END ==
PROVIDERS: PCP Emergency Medicine; Visit Provider Nurse Practitioner
DX: R10.9 Unspecified abdominal pain (principal); R16.0 Hepatomegaly, not elsewhere classified
CPT/HCPCS: 76700

== ENCOUNTER → 2022-10-13 10:03 | Outpatient (CLI) | payer OTHER, SELFPAY ==
--- NOTE | ~2022-10-13 | US_ITS ---
Pelvic ultrasound. Clinical History: Pelvic pain Technique: Realtime transabdominal and transvaginal scanning of the pelvis was performed. Color flow Doppler and Doppler spectral analysis were performed. Findings: The uterus is anteverted. The endometrial stripe has a thickness of 9 mm. No focal mass is identified. Small amount of fluid present in the endometrial cavity, nonspecific. The right ovary measures 2.2 x 2.3 x 1.6 cm. No significant right ovarian or adnexal mass is seen. The left ovary measures 2.6 x 1.9 x 2.3 cm. No significant left ovarian or adnexal mass is seen. Vascular flow present in both ovaries on Doppler spectral analysis. There is no evidence of free fluid in the cul de sac. Impression: Small amount of fluid in the endometrial cavity, presumably related to stage in menstrual cycle. No other significant findings. Reviewed, dictated and finalized at [facility]. Impression: Small amount of fluid in the endometrial cavity, presumably related to stage in menstrual cycle. No other significant findings.
== END ==
PROVIDERS: PCP Emergency Medicine; Visit Provider Nurse Practitioner
DX: R10.2 Pelvic and perineal pain (principal)
CPT/HCPCS: 76830; 76856

== ENCOUNTER → 2022-10-28 10:24 | Outpatient (CLI) | payer OTHER, SELFPAY ==
--- NOTE | ~2022-10-28 | CT_ITS ---
CT of the Abdomen and Pelvis: Indication: Pelvic pain Technique: 2.5 mm axial scans were obtained through the abdomen and pelvis following intravenous adm inistration of 100 cc of Omnipaque 350. Dose reduction technique was used on this scan by utilizing a utomated exposure control and iterative reconstruction technique. The dose-length product (DLP) was 5 93.63 mGy-cm. Findings: Scans through the lung bases are unremarkable. There is a 1.8 cm indeterminate hypodense posterior right hepatic lobe mass (axial image 31). The spl een, pancreas, gallbladder, adrenals and kidneys are within normal limits. No evidence of aortic ane urysm. No lymphadenopathy. Questionable mild distal large bowel wall thickening versus underdistention. No abscess or free air. No bowel obstruction. Images through the pelvis were performed. Urinary bladder unremarkable. Small follicular ovarian cyst s are noted. No other adnexal mass seen. No ascites. Impression: 1.8 cm indeterminate hypodense right hepatic lobe mass, as detailed above. Pre and postcontrast MR re commended to further characterize this lesion. Questionable mild wall thickening of the distal large bowel versus underdistention. Correlate for any possibility of infectious/inflammatory colitis. Reviewed, dictated and finalized at location . Impression: 1.8 cm indeterminate hypodense right hepatic lobe mass, as detailed above. Pre and postcontrast MR recommended to further characterize this lesion. Questionable mild wall thickening of the distal large bowel versus underdistent ion. Correlate for any possibility of infectious/inflammatory colitis.
== END ==
PROVIDERS: PCP Internal Medicine; Visit Provider Nurse Practitioner
DX: K76.9 Liver disease, unspecified (principal); R10.2 Pelvic and perineal pain; R10.9 Unspecified abdominal pain
CPT/HCPCS: 74177; Q9967

== ENCOUNTER → 2022-12-02 12:42 | Outpatient (CLI) | payer OTHER, SELFPAY ==
--- NOTE | ~2022-12-02 | MR_ITS ---
MRI of the abdomen: Clinical indication: Liver mass. Technique: Coronal SSFSE ARC, WATER:coronal LAVA-FLEX, Coronal 2D FIESTA FatSat, Axial SSFSE BH ARC, Axial 3D DualEcho BH, Axial SSFSE-IR, Axial DWI b=500, Axial 2D FIESTA FatSat, pre and dynamic postco ntrast Axial LAVA ARC, postcontrast Coronal In and Opposed phase LAVA FLEX. Following intravenous adm inistration of 13 cc MultiHance gadolinium, T1-weighted fat-sat imaging was performed in the axial an d coronal planes. COMPARISON: CT scan dated 10/28/2022 Findings: Gallbladder is unremarkable. The common bile duct is normal in course and caliber. No filli ng defects are seen within the CBD. No evidence of intrahepatic biliary ductal dilatation. The pancre atic duct is normal in size. There is a 1.8 x 1.6 cm T2 hyperintense mass in the posterior right hepatic lobe (series 3 image 21). Lesion demonstrates discontinuous peripheral nodular enhancement with progressive fill in over time on postcontrast images. Spleen, pancreas, adrenals, kidneys appear normal. The aorta and the paraaortic regions appear normal . Impression: 1.8 x 1.6 cm hepatic hemangioma, as detailed above, which correlates with lesion seen on prior CT sca n. Reviewed, dictated and finalized at [facility]. Impression: 1.8 x 1.6 cm hepatic hemangioma, as detailed above, which correlates with lesio n seen on prior CT scan.
== END ==
PROVIDERS: PCP Emergency Medicine; Visit Provider Nurse Practitioner
DX: R16.0 Hepatomegaly, not elsewhere classified (principal); K42.9 Umbilical hernia without obstruction or gangrene; D18.03 Hemangioma of intra-abdominal structures
CPT/HCPCS: 74183; A9577

== ENCOUNTER 2022-12-22 08:26 | Day surgery (SDC) | payer OTHER, SELFPAY ==
[2022-11-19 14:13] VITALS: BMI 25.1
[2022-12-02 14:03] VITALS: BMI 25.7
--- NOTE | 2022-12-19 12:55 | P.PNAN_ITS ---
Anes - Initial Pre Proc Eval Procedure: Operation Date: 12/22/22 10:30 Proposed Procedures p Diagnostic Colonoscopy - Dain Baldwin MD Date/Time: 12/19/22 12:55 Surgeon: Dain Baldwin MD Pre Op Diagnosis: Unspec. abd pain & abnormal finding on dx imaging Patient Data Age: 42 Gender: F Height: 1.6 m Weight: 66 kg Allergies Allergy/AdvReac Type Severity Reaction Status Date / Time Penicillins AdvReac Intermediate Vomiting Verified 12/22/22 09:14 Home Medications Medication Instructions Recorded Confirmed Type No Home Medications 12/02/22 12/22/22 History Patient hx anesthesia problems: none Family hx anesthesia problems: none Results Review: All pre-operative results and documents have been reviewed as part of the pre- operative evaluation. [facility] Past Medical History Medical History (Updated 12/22/22 @ 10:10 by Dain Baldwin MD) Abnormal CT of the abdomen section wound seroma, Eczema Endometriosis Family hx of colon cancer Lower abdominal pain Melena Pelvic pain Post depression Tubal Surgical History Surgical History Previous section Family History Family History Father Skin cancer Father Liver cancer Mother Colon cancer Thyroid disease Other Alcohol abuse Social History Social History Smoking status: Never smoker Alcohol intake: never Substance use: never Substance use type: does not use Lack of Transportation: No Lack of Food: Never True Current Housing: I Have Housing Concerned About Future Housing: No Difficulty Paying Gas/Electric Bills: No Difficulty Paying for Meds: No Currently Unemployed: No Education: High School Diploma/GED Difficulty w/ Childcare or Family Care: No Living arrangements: with family Gender identity (if verbalized by the patient): Female Spiritual care concerns: No Anes - Eval Final PreProcedure Day of Procedure 12/19/22 12:55 Patient weight: obese Heart: regular rate and rhythm Lungs: clear to auscultation Airway: Mallampati scale class II Neurological: alert and oriented Last oral intake: >/= 8 hours ASA classification: II Emergent: no Anesthetic plan: proceed Anesthesia type and monitoring: general GIVS and standard monitoring Results Review: All pre-operative results and documents have been reviewed as part of the pre- operative evaluation. Informed Consent: The patient's anesthetic plan and its attendant risks and benefits were discussed with the patient/family/POA. Questions were solicited and answers provided to the satisfaction of the patient/family/POA.
[2022-12-22 09:16] VITALS: BP 111/77; PULSE 83; RESP 16; TEMP 37.2; O2SAT 100
[2022-12-22] MEDS: LACTATED RINGERS 1,000 ML 150 ML IV CONT (09:31)
--- NOTE | 2022-12-22 10:09 | PM.HPGS ---
History of Present Illness History of Present Illness Consent: Risks, benefits, and alternatives have been discussed and questions answered. Patient agrees to proceed with procedure. Chief complaint: Unspec. abd pain & abnormal finding on dx imaging Narrative: Amy Cedillo is a 42 year old female with intermittent abdominal pain, recent CT scan showed questionable mild wall thickening of the distal large bowel versus underdistention. Correlate for any possibility of infectious/inflammatory colitis, last colonoscopy 2020 with only diverticulosis. Mother had colon cancer. Review of Systems Constitutional: Constitutional: Denies headache(s) and Denies weakness Eyes: Eyes: Denies blurry vision ENT: Reports Normal hearing present, Denies headache(s) and Denies neck pain Cardiovascular: Cardiovascular: Denies chest pain and Denies dyspnea Respiratory: Respiratory: Denies dyspnea Gastrointestinal: Gastrointestinal: Reports no additional gastrointestinal complaints Genitourinary: Genitourinary: Denies dysuria Musculoskeletal: Musculoskeletal: Denies neck pain Integumentary/Breasts: Skin/Breast: Denies dry skin Neurologic: Reports Normal hearing present, Denies headache(s) and Denies weakness Psychiatric: Psychiatric: Denies anxiety Endocrine: Endocrine: Denies change in body appearance Hematologic/Lymphatic: Hematologic/Lymphatic: Denies easy bleeding Allergic/Immunologic: Allergic/Immunologic: Denies urticaria PMFSH Past Medical History Medical History (Updated 12/22/22 @ 10:10 by Dain Baldwin MD) Abnormal CT of the abdomen section wound seroma, Eczema Endometriosis Family hx of colon cancer Lower abdominal pain Melena Pelvic pain Post depression Tubal Surgical History Surgical History Previous section Family History Family History Father Skin cancer Father Liver cancer Mother Colon cancer Thyroid disease Other Alcohol abuse Social History Social History Smoking status: Never smoker Alcohol intake: never Substance use: never Substance use type: does not use Lack of Transportation: No Lack of Food: Never True Current Housing: I Have Housing Concerned About Future Housing: No Difficulty Paying Gas/Electric Bills: No Difficulty Paying for Meds: No Currently Unemployed: No Education: High School Diploma/GED Difficulty w/ Childcare or Family Care: No Living arrangements: with family Gender identity (if verbalized by the patient): Female Spiritual care concerns: No Meds Home Medications and Allergies Home Medications Medication Instructions Recorded Confirmed Type No Home Medications 12/02/22 12/22/22 History Allergies Allergy/AdvReac Type Severity Reaction Status Date / Time Penicillins AdvReac Intermediate Vomiting Verified 12/22/22 09:14 Vital Signs Vital Signs - 24 hr 12/22/22 09:16 Temperature 99.0 F Pulse Rate 83 Respiratory Rate 16 Blood Pressure 111/77 Pulse Oximetry 100 Oxygen Delivery Room Air Exam Const: General: comfortable and no acute distress HENMT: Face/Nose/Sinus: Normal nares present Eyes: General: appearance normal, both eyes and all related structures Neck: Neck: no JVD Resp: Auscultation: clear to auscultation bilaterally Cardio: Rate: regular rate Rhythm: regular rhythm GI: Inspection: non-distended GI Palp: Yes Soft to palpation Skin: General skin exam: normal color Neuro: General: gait normal Speech: normal speech Extrem: General: normal to inspection Psych: Mental Status: mental status grossly normal Assessment and Plan Assessment and plan (1) Family hx of colon cancer: Code(s): Z80.0 - Family history of malignant neoplasm of digest
[2022-12-22 10:28] VITALS: BP 111/71; PULSE 79; RESP 18; O2SAT 99
[2022-12-22 10:38] VITALS: BP 107/73; PULSE 74; RESP 20; O2SAT 100
[2022-12-22 10:48] VITALS: BP 113/83; PULSE 66; RESP 18; O2SAT 100
--- NOTE | 2022-12-22 11:13 | WPDANESPN ---
Anes - Prog Note Post-Op Date/Time: 12/22/22 11:13 Cardiovascular status: normal Respiratory status: normal Airway patency: baseline Mental status: baseline Post-Op hydration status: normal Vital Signs: Last Vital Signs Temp 37.2 C 12/22/22 09:16 Pulse 66 12/22/22 10:48 Resp 18 12/22/22 10:48 BP 113/83 12/22/22 10:48 Pulse Ox 100 12/22/22 10:48 O2 Del Method Room Air 12/22/22 10:48 Pain Score (VAS): 0 I/O: Intake & Output 12/21/22 12/22/22 12/22/22 23:59 07:59 15:59 Intake Total 450 Balance 450 Post-procedural complaints: none Patient Feedback: Patient satisfied with anesthetic care. Other Findings: Patient vital signs back to baseline. Patient denies nausea and vomiting. Patient's pain under control. Patient OK for discharge.
== END 2022-12-22 11:04 | disposition home or self-care (01) ==
PROVIDERS: PCP Nurse Practitioner; Visit Provider Internal Medicine Gastroenterology
PROC: 0DJD8ZZ Inspection of Lower Intestinal Tract, Via Natural or Artificial Opening Endoscopic (ICD-10-PCS; CPT 45378; principal; 2022-12-22 10:30)
DX: Z80.0 Family history of malignant neoplasm of digestive organs (principal)
CPT/HCPCS: 45380

== ENCOUNTER 2022-12-22 09:00 | Outpatient (NON) | payer OTHER, SELFPAY | END 2022-12-22 09:01 | disposition home or self-care (01) | LOC: ANHLAB 12-23 07:17 | PROVIDERS: PCP Emergency Medicine; Visit Provider Internal Medicine Gastroenterology | DX: D12.5 Benign neoplasm of sigmoid colon (principal); Z80.0 Family history of malignant neoplasm of digestive organs | CPT/HCPCS: 88305 ==

== ENCOUNTER → 2023-02-09 11:22 | Outpatient (CLI) | payer OTHER, SELFPAY ==
--- NOTE | ~2023-02-09 | CT_ITS ---
EXAMINATION: CT soft tissue neck w con DATE: 02/09/2023 11:42 INDICATION: Localized swelling, mass and lump, neck. TECHNIQUE: Computed tomography (CT) of the neck was performed with 75 mL Omnipaque-350 intravenous co ntrast. Automated exposure control and iterative reconstruction technique were employed. The dose-josi gth product was 410.53 mGy-cm. COMPARISON: None FINDINGS: There is a multinodular goiter that extends into the superior mediastinum. The largest nodu le is in the superior mediastinum and measures 2.4 cm. There are no pathologically enlarged lymph nod es. The cervical carotid arteries are normal. There is mild mucosal thickening in the ethmoid sinuses . There is mild cervical spondylosis. IMPRESSION: 1. Multinodular goiter. Consider thyroid ultrasound for risk stratification. Reviewed, dictated and finalized at location E.
== END ==
PROVIDERS: PCP Emergency Medicine; Visit Provider Emergency Medicine
DX: E04.2 Nontoxic multinodular goiter (principal)
CPT/HCPCS: 70491; Q9967

== ENCOUNTER → 2023-03-04 10:40 | Outpatient (CLI) | payer OTHER, SELFPAY ==
--- NOTE | ~2023-03-04 | MM_ITS ---
EXAMINATION: MM screening paco BI w gena HISTORY: Screening TECHNIQUE: Craniocaudal and mediolateral oblique 3-D tomosynthesis images were obtained and synthetic 2-D images were generated. CAD analysis was submitted and interpreted. COMPARISON: Comparison to multiple prior studies sequentially, with oldest reviewed study dated 10/11. BREAST PARENCHYMAL COMPOSITION: The breasts are heterogeneously dense, which may obscure small masses . FINDINGS: There is no evidence of suspicious mass, calcification, or architectural distortion to sugg est malignancy in either breast. There has been no suspicious interval change. IMPRESSION: 1. No mammographic evidence of malignancy. 2. Recommend routine screening mammography in one year. BI-RADS Category 1: Negative Reviewed, dictated and finalized at location A.
== END ==
PROVIDERS: PCP Emergency Medicine; Visit Provider Obstetrics & Gynecology
DX: Z12.31 Encounter for screening mammogram for malignant neoplasm of breast (principal)
CPT/HCPCS: 77063; 77067

== ENCOUNTER 2023-04-10 09:28 | Outpatient (CLI) | payer OTHER, SELFPAY ==
--- NOTE | ~2023-04-10 | US_ITS ---
EXAMINATION: US thyroid DATE: 04/10/2023 10:57 INDICATION: Multinodular goiter. TECHNIQUE: Multiple ultrasound images of the thyroid were obtained. COMPARISON: Neck CT 02/09/2023 FINDINGS: The right thyroid lobe measures 5.2 x 2.0 x 1.8 cm. The left thyroid lobe measures 4.8 x 1.4 x 1.9 c m. In the right thyroid lobe, there is a 2.3 cm mixed cystic and solid, isoechoic, wider than tall n odule with ill-defined margin without echogenic foci (TI-RADS TR2). In the right thyroid lobe, there is a 2.1 cm solid, hypoechoic, wider than tall nodule with ill-defined margin without echogenic foci (TR4). In the left thyroid lobe, there is a 1.1 cm mixed cystic and solid, hypoechoic, wider than lanette l nodule with smooth margin without echogenic foci (TR3). IMPRESSION: 1. Multinodular goiter. Reportedly, a right thyroid nodule was biopsied this year, presumably the 2.1 cm nodule. Correlate with outside biopsy results. The other nodules are likely not clinically signif icant and do not need follow-up. Reviewed, dictated and finalized at location E. IMPRESSION: 1. Multinodular goiter. Reportedly, a right thyroid nodule was biopsied this ye ar, presumably the 2.1 cm nodule. Correlate with outside biopsy results. The ot her nodules are likely not clinically significant and do not need follow-up.
== END 2023-04-10 09:29 | disposition home or self-care (01) ==
PROVIDERS: PCP Emergency Medicine; Visit Provider Internal Medicine
DX: E04.2 Nontoxic multinodular goiter (principal)
CPT/HCPCS: 76536

== ENCOUNTER 2023-08-10 12:26 | Outpatient (CLI) | payer OTHER, SELFPAY ==
--- NOTE | ~2023-08-10 | US_ITS ---
EXAMINATION: 1. US FNA w image guidance 2. US FNA additional DATE: 08/10/2023 13:58 INDICATION: Thyroid nodules. TECHNIQUE: The procedure and its benefits and risks were discussed with the patient. Risks specifically discusse d included bleeding. The patient verbalized understanding of the risks and agreed to proceed. The nec k was prepped and draped in the usual sterile manner. 1% lidocaine was used for local anesthesia. 6 passes were made with a 25G needle into the lesion in right thyroid lobe under ultrasound guidance. 6 passes were made with a 25-gauge needle into the lesion in left thyroid lobe under ultrasound kamilah nce. There were no immediate complications. FINDINGS: Grayscale ultrasound images demonstrate needles advanced into a 2.1 cm nodule in right thyroid lobe f or biopsy. Grayscale ultrasound images demonstrate needles advanced into a 1.2 cm nodule in left thyr oid lobe for biopsy. IMPRESSION: 1. Ultrasound-guided fine needle aspiration of a right thyroid nodule. 2. Ultrasound-guided fine needle aspiration of a left thyroid nodule. Reviewed, dictated and finalized at location A. MAN IMPRESSION: 1. Ultrasound-guided fine needle aspiration of a right thyroid nodule. 2. Ultrasound-guided fine needle aspiration of a left thyroid nodule.
== END 2023-08-10 12:27 | disposition home or self-care (01) ==
PROVIDERS: PCP Emergency Medicine; Visit Provider Internal Medicine
DX: E04.2 Nontoxic multinodular goiter (principal)
CPT/HCPCS: 10005; 10006; 88172; 88173; 88305

== ENCOUNTER 2024-04-22 10:43 | Emergency (ER) | payer OTHER, SELFPAY ==
[2024-04-22 10:59] VITALS: BP 121/80; PULSE 85; RESP 16; TEMP 37; O2SAT 99
--- NOTE | 2024-04-22 11:24 | ECG_ITS ---
Test Date: 2024-04-22 11:30:31 Measurements Intervals [place] Rate: 85 P: 59 VA: 151 QRS: 17 QRSD: 108 T: 36 QT: 388 QTc: 464 Interpretive Statements SINUS RHYTHM WITH SINUS ARRHYTHMIA NONSPECIFIC ST-T WAVE ABNORMALITY- ANTEROLAT/INF LEADS BASELINE ARTIFACT- I, II, III, AVR, AVL, V4 BORDERLINE ECG No previous ECG available for comparison Electronically Signed On 04-22-2024 12:02:23 INFO ANALYST by Jay Barrios D.O.
--- NOTE | 2024-04-22 11:27 | ED.CHESTPAIN ---
HPI - Chest Pain General Chief Complaint: Chest Pain Stated Complaint: chest pain and tightness Time Seen by Provider: 04/22/24 11:37 Mode of arrival: ambulatory Limitations: no limitations History of Present Illness HPI narrative: 43-year-old female presents with concern for chest pain and chest heaviness. She reports this has been going on intermittently for some time, but has gotten worse. She reports she is now having left arm heaviness. She does report history of anxiety. Reports symptoms seem to worsen when she is angry or stressed. She reports she feels her heart beating fast. She denies any shortness of breath, cough, upper respiratory symptoms. She denies any nausea, vomiting, diarrhea, epigastric discomfort MD complaint: chest pain and chest heaviness Related Data Home Medications Medication Instructions Recorded Confirmed No Home Medications 04/22/24 04/22/24 Allergies Allergy/AdvReac Type Severity Reaction Status Date / Time Penicillins AdvReac Intermediate Vomiting Verified 04/22/24 11:26 Review of Systems Review of Systems: CONSTITUTIONAL: Denies malaise, chills, sweats, or fever. ENT: Denies rhinorrhea, congestion, sinus pain, otalgia or sore throat. CARDIOVASCULAR: Reports chest pain, heaviness, palpitations. Denies edema. RESPIRATORY: Denies cough or dyspnea. GASTROINTESTINAL: Denies abdominal pain, nausea, vomiting SKIN: Denies rash or itching. MUSCULOSKELETAL: Denies back pain, joint pain, or myalgia. PSYCHIATRIC: Reports anxiety, stress All systems reviewed & are unremarkable except as noted in HPI and below PMFSH Past Medical History Medical History Abnormal CT of the abdomen section wound seroma, Eczema Endometriosis Family hx of colon cancer Lower abdominal pain Melena Pelvic pain Post depression Tubal Surgical History Surgical History H/O tubal ligation Previous section Family History Family History Father Skin cancer Father Liver cancer Mother Colon cancer Thyroid disease Other Alcohol abuse Social History Social History Smoking status: Never smoker Alcohol intake: never Substance use: never Substance use type: does not use Lack of Transportation: No Lack of Food: Never True Current Housing: I Have Housing Concerned About Future Housing: No Difficulty Paying Gas/Electric Bills: No Difficulty Paying for Meds: No Currently Unemployed: No Education: High School Diploma/GED Difficulty w/ Childcare or Family Care: No Living arrangements: with family Gender identity (if verbalized by the patient): Female Spiritual care concerns: No Comments At time of signature, agree with nursing past medical, surgical, social and family history. There is no relevant family history pertinent to the presenting complaint Exam Narrative: GENERAL: Well-appearing, well-nourished, and in no acute distress. HEAD: Normocephalic EYES: PERRLA, sclera clear ENT: Nares clear. Mucous membranes moist. NECK: Supple. CHEST: No respiratory distress. Clear to auscultation. No bony deformities, no asymmetry. Speaks in full sentences. HEART: Regular rate and rhythm. No murmur heard. Normal peripheral pulses. EXTREMITIES: Normal range of motion. No edema. SKIN: Warm, dry, no visible rash. NEURO: Alert and oriented x3 PSYCH: Normal mood and affect Course Course Emergency Course: Patient is aware of diagnosis, understands and agrees to treatment plan. Anticipatory guidance given. Patient agrees to follow-up as directed and is aware of reasons to seek care at the emergency department. Portions of this record may have been created with voice recognition software Level of Care: Express Care Visit Vital Signs Vital signs: Vital Signs Temperature 98.6 F 04/22/24 10:59 Pulse Rate 85 04/22/24 10:59 Respiratory Rate 16 04/22/24 10:59 Blood Pressure 121/80 04/22/24 10:59 Pulse Oximetry 99 04/22/24 10:59 Temperature 98.6 F 04/22/24 10:59 Pulse Rate 85 04/22/24 10:59 Respiratory Rate 16 04/22/24 10:59 Blood Pressure 121/80 04/22/24 10:59 Pulse Oximetry 99 04/22/24 10:59 Reviewed. Transfer Transfered to: [employer] [facility] Transportation: Other (Private) Transfer rationale: chest pain Accepting physician: ruddy MDM - Chest Pain MDM Narrative Medical decision making narrative: Patient's symptoms warrant further evaluation in the emergency department. Patient is nontoxic appearing and in no acute distress ECG Data EKG #1: ECG completion date: 04/22/24 ECG completion time: 11:30 Prior ECG tracings: not available for review Interpretation: Nonspecific T-wave abnormality, rate 85, [place] interval 151, QRS duration 1 weight EKG Interpretation: normal rate and sinus rhythm Critical Care Time Critical Care Time Critical Care Time: No Discharge Plan Discharge Clinical Impression: Chest pain Patient Disposition: Acute Care Hospital Condition: Stable Prescriptions: No Action No Home Medications Follow-up/Referrals: Dipesh Bui MD [Primary Care Provider] -
== END 2024-04-22 11:56 | disposition short-term general hospital (02) ==
PROVIDERS: Emergency Provider Nurse Practitioner; PCP Emergency Medicine
DX: R07.9 Chest pain, unspecified (principal); N80.9 Endometriosis, unspecified
CPT/HCPCS: 93005; 99213; G0463

== ENCOUNTER 2024-04-22 12:19 | Emergency (ER) | payer OTHER, SELFPAY ==
--- NOTE | ~2024-04-22 | XR_ITS ---
Clinical Indication: Chest pain PA and lateral views of the chest: Comparison: None Findings: The lungs are clear, without evidence of focal consolidation or pleural effusion. Cardiome diastinal silhouette is within normal limits. Bones and soft tissues are unremarkable. Impression: Normal chest. Reviewed, dictated and finalized at location . AKE PROFESSIONAL Impression: Normal chest.
--- NOTE | 2024-04-22 12:25 | ECG_ITS ---
Test Date: 2024-04-22 13:10:19 Measurements Intervals [place] Rate: 77 P: 64 NC: 151 QRS: 25 QRSD: 90 T: 33 QT: 387 QTc: 439 Interpretive Statements SINUS RHYTHM BORDERLINE ST-T WAVE ABNORMALITY- INFERIOR LEADS BASELINE ARTIFACT- I, III, AVR BORDERLINE ECG Compared to ECG 04/22/2024 11:30:31 Sinus arrhythmia no longer present Electronically Signed On 04-22-2024 13:46:24 FLIGHT OPERATIONS SPECIALIST by Jay Barrios D.O.
[2024-04-22 12:26] VITALS: BP 122/76; PULSE 81; RESP 18; TEMP 36.3; O2SAT 100
[2024-04-22 12:38] LABS: Basophils Absolute Auto 0.1 K/mm3 (0.0-0.1); Basophils Percent Auto 1.1 % (0.2-1.2); Eosinophils Absolute Auto 0.1 K/mm3 (0-0.3); Eosinophils Percent Auto 2.3 % (0-4.4); Hematocrit 39.4 % (37.0-47.0); Hemoglobin 13.9 g/dL (12.0-15.0); Immature Granulocyte Absolute 0.01 K/mm3 (0.00-0.031); Immature Granulocyte Percent A 0.2 % (0-0.5); Lymphocytes Absolute Auto 1.63 K/mm3 (0.9-3.2); Lymphocytes Percent Auto 28.6 % (18.3-44.2); Mean Corpuscular HGB Conc 35.3 g/dl (32-36); Mean Corpuscular Hemoglobin 32.1 pg (26-34); Mean Platelet Volume 10.2 fl (7.4-10.4); Monocytes Absolute Auto 0.4 K/mm3 (0.1-0.6); Monocytes Percent Auto 7.5 % (2.6-8.5); Neutrophils Absolute Auto 3.4 K/mm3 (1.3-6.7); Neutrophils Percent Auto 60.3 % (45.5-73.1); Platelet Count Result 223 k/mm3 (150-375); Red Blood Count 4.33 M/mm3 (4.2-5.4); Red Cell Distribution Width 12.5 % (11.5-14.5); White Blood Count 5.7 K/mm3 (4.5-10.0)
[2024-04-22 12:53] LABS: Alanine Aminotransferase 15 U/L (6-35); Albumin Level 4.4 g/dL (3.5-5.1); Alkaline Phosphatase 61 U/L (38-126); Anion Gap 7 mmol/L (4-12); Aspartate Amino Transferase 19 U/L (14-36); Blood Urea Nitrogen 9 mg/dL (7-17); Calcium 8.7 mg/dL (8.4-10.2); Carbon Dioxide 29 mmol/L (22-30); Chloride 103 mmol/L (98-107); Estimated CRCL calculation 101 ml/min; Estimated Glomerular Filt Rate > 60; Glucose 121 mg/dL (65-110); Lipase 53 U/L (23-300); Potassium 3.6 mmol/L (3.4-5.0); Sodium 139 mmol/L (137-145)
[2024-04-22 12:57] LABS: INR 0.9; Prothrombin Time 12.7 Seconds (11.1-14.7)
[2024-04-22 12:58] LABS: Partial Thromboplastin Time 26.3 Seconds (22.3-36.8)
[2024-04-22 13:04] LABS: Troponin I < 0.012 ng/mL (0.000-0.034)
--- NOTE | 2024-04-22 13:10 | ED_ITS ---
HPI - Chest Pain General Chief Complaint: Chest Pain Stated Complaint: CHEST PAIN Time Seen by Provider: 04/22/24 13:05 Focused HPI: Patient is a 43-year-old female who presents to ER with chest pain. She reports she has a history of chest pain, but has not been worked up in years. Patient describes the pain as tight. She endorses a history of headache/migraines with menstrual periods, which is occurring at the time of physical exam. Patient reports she has been taking Tylenol at home. She also reports she woke up sweating the other day. Patient reports she has been under a fair amount of stress lately. She denies shortness of breath, difficulty breathing, or recent fevers. GENERAL: Well-appearing, well-nourished, and in no acute distress. HEAD: Normocephalic, atraumatic. CHEST: Clear to auscultation. ?No respiratory distress. HEART: Regular rate and rhythm.? NEURO: ?Alert and oriented x3. Patient screened in triage and initial orders placed.? ?Additional care and disposition to be based upon?diagnostic testing and treatment. Related Data Home Medications Medication Instructions Recorded Confirmed No Home Medications 04/22/24 04/22/24 Allergies Allergy/AdvReac Type Severity Reaction Status Date / Time Penicillins AdvReac Intermediate Vomiting Verified 04/22/24 11:26 [facility] Past Medical History Medical History Abnormal CT of the abdomen section wound seroma, Eczema Endometriosis Family hx of colon cancer Lower abdominal pain Melena Pelvic pain Post depression Tubal Surgical History Surgical History H/O tubal ligation Previous section Family History Family History Father Skin cancer Father Liver cancer Mother Colon cancer Thyroid disease Other Alcohol abuse Social History Social History Smoking status: Never smoker Alcohol intake: never Substance use: never Substance use type: does not use Lack of Transportation: No Lack of Food: Never True Current Housing: I Have Housing Concerned About Future Housing: No Difficulty Paying Gas/Electric Bills: No Difficulty Paying for Meds: No Currently Unemployed: No Education: High School Diploma/GED Difficulty w/ Childcare or Family Care: No Living arrangements: with family Gender identity (if verbalized by the patient): Female Spiritual care concerns: No Course Vital Signs Vital signs: Vital Signs Temperature 36.3 C L 04/22/24 12:26 Pulse Rate 81 04/22/24 12:26 Respiratory Rate 18 04/22/24 12:26 Blood Pressure 122/76 04/22/24 12:26 Pulse Oximetry 100 04/22/24 12:26 Oxygen Delivery Room Air 04/22/24 12:26 Temperature 36.3 C L 04/22/24 12:26 Pulse Rate 81 04/22/24 12:26 Respiratory Rate 18 04/22/24 12:26 Blood Pressure 122/76 04/22/24 12:26 Pulse Oximetry 100 04/22/24 12:26 Oxygen Delivery Room Air 04/22/24 12:26 MDM - Chest Pain Lab Data 04/22/24 12:31 04/22/24 12:31 Labs: Lab Results 04/22/24 Range/Units 12:31 WBC 5.7 (4.5-10.0) K/mm3 RBC 4.33 (4.2-5.4) M/mm3 Hgb 13.9 (12.0-15.0) g/dL Hct 39.4 (37.0-47.0) % MCV 91.0 (80-100) fl MCH 32.1 (26-34) pg MCHC 35.3 (32-36) g/dl RDW 12.5 (11.5-14.5) % Plt Count 223 D (150-375) k/mm3 MPV 10.2 (7.4-10.4) fl Immature Gran % (Auto) 0.2 (0-0.5) % Neut % (Auto) 60.3 (45.5-73.1) % Lymph % (Auto) 28.6 (18.3-44.2) % [place] % (Auto) 7.5 (2.6-8.5) % Eos % (Auto) 2.3 (0-4.4) % Baso % (Auto) 1.1 (0.2-1.2) % Lymph # (Auto) 1.63 (0.9-3.2) K/mm3 [place] # (Auto) 0.4 (0.1-0.6) K/mm3 Eos # (Auto) 0.1 (0-0.3) K/mm3 Baso # (Auto) 0.1 (0.0-0.1) K/mm3 Abs Immat Gran (auto) 0.01 (0.00-0.031) K/mm3 Absolute Neuts (auto) 3.4 (1.3-6.7) K/mm3 Absolute Nucleated RBC 0.000 (0.0-0.012) K/mm3 Nucleated RBC % 0.0 (0.0-0.2) % PT 12.7 (11.1-14.7) Seconds INR 0.9 APTT 26.3 (22.3-36.8) Seconds Sodium 139 (137-145) mmol/L Potassium 3.6 (3.4-5.0) mmol/L Chloride 103 (98-107) mmol/L Carbon Dioxide 29 (22-30) mmol/L Anion Gap 7 (4-12) mmol/L BUN 9 (7-17) mg/dL Creatinine 0.50 L (0.7-1.0) mg/dL Estim Creat Clear Calc 101 ml/min Estimated GFR > 60 (59 - ) Glucose 121 H (65-110) mg/dL Calcium 8.7 (8.4-10.2) mg/dL Total Bilirubin 1.0 (0.2-1.3) mg/dL AST 19 (14-36) U/L ALT 15 (6-35) U/L Alkaline Phosphatase 61 (38-126) U/L Troponin I < 0.012 (0.000-0.034) ng/mL Total Protein 7.0 (6.3-8.2) g/dL Albumin 4.4 (3.5-5.1) g/dL Lipase 53 (23-300) U/L Discharge Plan Discharge Prescriptions: No Action No Home Medications Follow-up/Referrals: Dipesh Bui MD [Primary Care Provider] -
[2024-04-22 13:31] LABS: CRP < 0.5 mg/dL (<1.0)
[2024-04-22 15:25] LABS: Influenza A QL RT-PCR Negative (Negative); Influenza B QL RT-PCR Negative (Negative); RSV RNA, RT-PCR Negative (Negative); SARS-CoV-2 RNA PCR Negative (Negative)
--- NOTE | 2024-04-22 16:32 | ED.CHESTPAIN ---
HPI - Chest Pain General Chief Complaint: Chest Pain Stated Complaint: CHEST PAIN Time Seen by Provider: 04/22/24 13:05 Source: patient Mode of arrival: ambulatory Limitations: no limitations History of Present Illness HPI narrative: 43-year-old female presenting for concerns for chest pain. It has been an ongoing issue for over a week now with her. Mostly happens at night when she goes to lay down and is stressed out or when she gets worked up she gets some chest tightness in her anterior chest. Happened again today so she came to be evaluated Related Data Home Medications Medication Instructions Recorded Confirmed No Home Medications 04/22/24 04/22/24 Allergies Allergy/AdvReac Type Severity Reaction Status Date / Time Penicillins AdvReac Intermediate Vomiting Verified 04/22/24 11:26 Review of Systems Review of Systems: All systems reviewed & are unremarkable except as noted in HPI and below PMFSH Past Medical History Medical History Abnormal CT of the abdomen section wound seroma, Eczema Endometriosis Family hx of colon cancer Lower abdominal pain Melena Pelvic pain Post depression Tubal Surgical History Surgical History H/O tubal ligation Previous section Family History Family History Father Skin cancer Father Liver cancer Mother Colon cancer Thyroid disease Other Alcohol abuse Social History Social History Smoking status: Never smoker Alcohol intake: never Substance use: never Substance use type: does not use Lack of Transportation: No Lack of Food: Never True Current Housing: I Have Housing Concerned About Future Housing: No Difficulty Paying Gas/Electric Bills: No Difficulty Paying for Meds: No Currently Unemployed: No Education: High School Diploma/GED Difficulty w/ Childcare or Family Care: No Living arrangements: with family Gender identity (if verbalized by the patient): Female Spiritual care concerns: No Exam Narrative: Constitutional: Generally well appearing, no acute distress Head: Atraumatic, no deformities. Eyes: Pupils equal, round, and reactive to light. Neck: Supple, no tracheal deviation, no JVD. ENMT: Mucous membranes moist Cardiovascular: S1, S2 auscultated. No murmurs, rubs, or gallops. No S3/S4. Normal Distal pulses. No peripheral edema. Respiratory: Lung sounds equal. No wheezes, rales, or rhonchi. Gastrointestinal: Abdomen was soft and non-tender. Non-distended. No rebound or guarding. Genitourinary: Deferred Musculoskeletal: Normal muscle tone and bulk. No obvious deformities or tenderness over extremities. Skin: No rashes. Neurological: Strength 5/5 in extremities. Cranial nerves I-XII grossly intact. Distal sensation intact. Mental Status: Awake, alert and oriented x3. Follows commands Course Vital Signs Vital signs: Vital Signs Temperature 36.3 C L 04/22/24 12: Pulse Rate 81 04/22/24 12:26 Respiratory Rate 18 04/22/24 12:26 Blood Pressure 122/76 04/22/24 12:26 Pulse Oximetry 100 04/22/24 12:26 Oxygen Delivery Room Air 04/22/24 12:26 Temperature 36.3 C L 04/22/24 12:26 Pulse Rate 81 04/22/24 12:26 Respiratory Rate 18 04/22/24 12:26 Blood Pressure 122/76 04/22/24 12:26 Pulse Oximetry 100 04/22/24 12:26 Oxygen Delivery Room Air 04/22/24 12:26 MDM - Chest Pain MDM Narrative Medical decision making narrative: Well-appearing 43-year-old presenting for intermittent chest tightness for over week. On exam she is well-appearing with normal vitals. Cardiac workup will be obtained. Cardiac workup reviewed showing no focal abnormalities the cause for symptoms. EKG reviewed at 1:10 p.m. showing sinus rhythm with normal intervals.? No ST elevation or depression.? No T-wave abnormalities.? Impression:? No STEMI Patient reassured from a heart score is low, low risk for acute coronary pathology. Given PCP for follow-up. Pt feeling improved and would like to go home at this point. Return precautions were given to the patient include any new or worsening symptoms or development of and not limited to any chest pain, shortness of breath, lightheadedness, abdominal pain, fevers, chills. Patient understands and agrees. They are to follow-up with her PCP. All questions were answered. I reviewed the patient's vital signs, history, allergies, and labs and imaging workup. Lab Data 04/22/24 12:31 04/22/24 12:31 Labs: Lab Results 04/22/24 04/22/24 Range/Units 12:31 14:43 WBC 5.7 (4.5-10.0) K/mm3 RBC 4.33 (4.2-5.4) M/mm3 Hgb 13.9 (12.0-15.0) g/dL Hct 39.4 (37.0-47.0) % MCV 91.0 (80-100) fl MCH 32.1 (26-34) pg MCHC 35.3 (32-36) g/dl RDW 12.5 (11.5-14.5) % Plt Count 223 D (150-375) k/mm3 MPV 10.2 (7.4-10.4) fl Immature Gran % (Auto) 0.2 (0-0.5) % Neut % (Auto) 60.3 (45.5-73.1) % Lymph % (Auto) 28.6 (18.3-44.2) % Miner % (Auto) 7.5 (2.6-8.5) % Eos % (Auto) 2.3 (0-4.4) % Baso % (Auto) 1.1 (0.2-1.2) % Lymph # (Auto) 1.63 (0.9-3.2) K/mm3 Miner # (Auto) 0.4 (0.1-0.6) K/mm3 Eos # (Auto) 0.1 (0-0.3) K/mm3 Baso # (Auto) 0.1 (0.0-0.1) K/mm3 Abs Immat Gran (auto) 0.01 (0.00-0.031) K/mm3 Absolute Neuts (auto) 3.4 (1.3-6.7) K/mm3 Absolute Nucleated RBC 0.000 (0.0-0.012) K/mm3 Nucleated RBC % 0.0 (0.0-0.2) % PT 12.7 (11.1-14.7) Seconds INR 0.9 APTT 26.3 (22.3-36.8) Seconds Sodium 139 (137-145) mmol/L Potassium 3.6 (3.4-5.0) mmol/L Chloride 103 (98-107) mmol/L Carbon Dioxide 29 (22-30) mmol/L Anion Gap 7 (4-12) mmol/L BUN 9 (7-17) mg/dL Creatinine 0.50 L (0.7-1.0) mg/dL Estim Creat Clear Calc 101 ml/min Estimated GFR > 60 (59 - ) Glucose 121 H (65-110) mg/dL Calcium 8.7 (8.4-10.2) mg/dL Total Bilirubin 1.0 (0.2-1.3) mg/dL AST 19 (14-36) U/L ALT 15 (6-35) U/L Alkaline Phosphatase 61 (38-126) U/L Troponin I < 0.012 (0.000-0.034) ng/mL C-Reactive Protein < 0.5 (<1.0) mg/dL Total Protein 7.0 (6.3-8.2) g/dL Albumin 4.4 (3.5-5.1) g/dL Lipase 53 (23-300) U/L Influenza A (RT-PCR) Negative (Negative) Influenza B (RT-PCR) Negative (Negative) RSV (RT-PCR) Negative (Negative) SARS-CoV-2 RNA (RT-PCR) Negative (Negative) Discharge Plan Discharge Clinical Impression: Chest pain Qualifiers: Chest pain type: unspecified Qualified Code(s): R07.9 - Chest pain, unspecified Patient Disposition: Home, Self-Care Condition: Stable Instructions: Antibiotic Form, Chest Pain (ED) Prescriptions: No Action No Home Medications Follow-up/Referrals: Dipesh Bui MD [Primary Care Provider] - Lynn Pruett DO [Physician] - Time of Disposition: 16:31
[2024-04-22 16:35] VITALS: BP 122/77; PULSE 73; PULSE 75; RESP 16; TEMP 36.7; O2SAT 100
== END 2024-04-22 16:45 | disposition home or self-care (01) ==
PROVIDERS: Emergency Medicine; Registered Nurse; Emergency Provider Emergency Medicine; PCP Emergency Medicine
DX: R07.9 Chest pain, unspecified (principal); Z20.822 Contact with and (suspected) exposure to COVID-19
CPT/HCPCS: 36415; 71046; 80053; 83690; 84484; 85025; 85610; 85730; 86140; 87637; 93005; 99284

== ENCOUNTER 2024-04-28 13:24 | Outpatient (CLI) | payer OTHER, SELFPAY ==
--- NOTE | ~2024-04-28 | MM_ITS ---
EXAMINATION: MM screening paco BI w gena HISTORY: Screening mammogram TECHNIQUE: Craniocaudal and mediolateral oblique 3-D tomosynthesis images were obtained and synthetic 2-D images were generated. CAD analysis was submitted and interpreted. COMPARISON: 03/04/2023, 10/11/2021 BREAST PARENCHYMAL COMPOSITION:Dense: The breasts are heterogeneously dense, which may obscure small masses. FINDINGS: There is a low-density round mass in the upper left subareolar region. Stable parenchymal a ppearance of the right breast. No suspicious microcalcifications. IMPRESSION: Low-density round mass in the upper left subareolar region. Spot compression views and ultrasound ar e recommended for further evaluation. BI-RADS Category 0: Incomplete: Needs additional imaging evaluation. Reviewed, dictated and finalized at [facility]. GN SALES CONSULTANT IMPRESSION: Low-density round mass in the upper left subareolar region. Spot compression v iews and ultrasound are recommended for further evaluation. BI-RADS Category 0: Incomplete: Needs additional imaging evaluation.
== END 2024-04-28 13:25 | disposition home or self-care (01) ==
LOC: MICIMG 13:25
PROVIDERS: PCP Nurse Practitioner Family; Visit Provider Obstetrics & Gynecology
DX: Z12.31 Encounter for screening mammogram for malignant neoplasm of breast (principal); R92.8 Other abnormal and inconclusive findings on diagnostic imaging of breast
CPT/HCPCS: 77063; 77067

== ENCOUNTER 2024-04-28 13:26 | Outpatient (CLI) | payer OTHER, SELFPAY ==
--- NOTE | ~2024-04-28 | US_ITS ---
EXAMINATION: US thyroid DATE: 04/28/2024 13:54 INDICATION: Multinodular goiter TECHNIQUE: Multiple ultrasound images of the thyroid were obtained. COMPARISON: None. FINDINGS: The right thyroid lobe measures 6.5 x 1.1 x 1.4 cm. The left thyroid lobe measures 6.5 x 1.3 x 1.6 c m. Bilateral thyroid nodules. The largest is a 3.3 cm solid hypoechoic wider than tall nodule with s mooth and ill-defined margins and without echogenic foci (TI-RADS 4, moderately suspicious , FNA if > =1.5 cm, annual followup is >=1 cm) in the inferior left thyroid lobe. Additional similar-appearing 2 .0 cm TI-RADS 4 nodule in the medial right thyroid lobe and 3.2 cm TI-RADS 4 nodule in the inferior r ight thyroid lobe and two 7 mm TI-RADS 4 nodules in the mid left thyroid lobe. IMPRESSION: 1. A few bilateral TI-RADS 4 thyroid nodules. Recommend ultrasound-guided biopsy of largest 3.3 cm le ft-sided and 3.2 cm right-sided nodules. Reviewed, dictated and finalized at location B. SYSTEMS ENGINEER IMPRESSION: 1. A few bilateral TI-RADS 4 thyroid nodules. Recommend ultrasound-guided biops y of largest 3.3 cm left-sided and 3.2 cm right-sided nodules.
== END 2024-04-28 13:27 | disposition home or self-care (01) ==
LOC: MICIMG 13:27
PROVIDERS: PCP Nurse Practitioner Family; Visit Provider Internal Medicine
DX: E04.2 Nontoxic multinodular goiter (principal)
CPT/HCPCS: 76536

== ENCOUNTER 2024-05-27 09:09 | Outpatient (CLI) | payer OTHER, SELFPAY ==
--- NOTE | ~2024-05-27 | MMUS_ITS ---
EXAMINATION: MM diagnostic paco LT w gena, US breast LT limited HISTORY: Follow-up. Left breast mass. TECHNIQUE: Additional 3-D tomosynthesis images of the left breast were performed and synthetic 2-D im ages were generated. CAD analysis was submitted and interpreted. High resolution Limited left breast ultrasound was performed. COMPARISON: 04/28/2024 BREAST PARENCHYMAL COMPOSITION: Dense: The breasts are heterogeneously dense, which may obscure small masses FINDINGS: MAMMOGRAPHIC FINDINGS: There is a obscured mass in the upper central aspect of the left breast, anterior third. There are no suspicious calcifications or architectural distortion. ULTRASOUND: Complete US of all 4 quadrants of the breast/s and retroareolar region was reviewed. There are multip le cysts, largest located at 12:00, 2 cm from the nipple measuring 1.9 cm, corresponding to the mammo graphic finding. There are no suspicious sonographic abnormalities to suggest malignancy. IMPRESSION: 1. No evidence for malignancy in the left breast. Benign findings. 2. Routine yearly screening mammogram and regular clinical breast examination are recommended. BI-RADS Category 2: Benign finding(s). Reviewed, dictated and finalized at location B. ORATE TREASURY ANALYST IMPRESSION: 1. No evidence for malignancy in the left breast. Benign findings. 2. Routine yearly screening mammogram and regular clinical breast examination a re recommended. BI-RADS Category 2: Benign finding(s).
== END 2024-05-27 09:10 | disposition home or self-care (01) ==
LOC: MICIMG 09:10
PROVIDERS: PCP Nurse Practitioner Family; Visit Provider Obstetrics & Gynecology
DX: R92.8 Other abnormal and inconclusive findings on diagnostic imaging of breast (principal); N63.22 Unspecified lump in the left breast, upper inner quadrant
CPT/HCPCS: 76642; 77061; 77065; G0279